=== PATIENT | male | born 1975 | race Caucasian/White ===

== ENCOUNTER 2017-07-03 16:58 | Emergency (ER) | payer SELFPAY | END 2017-07-03 18:29 | disposition home or self-care (01) | PROVIDERS: Emergency Provider Nurse Practitioner Family; Visit Provider Nurse Practitioner Family | DX: J10.1 Influenza due to other identified influenza virus with other respiratory manifestations (principal) | CPT/HCPCS: 87804; 87880; 99201 ==

== ENCOUNTER → 2018-02-21 14:10 | Outpatient (CLI) | payer OTHER, SELFPAY ==
[2018-02-21 16:50] LABS: Semen Viscosity Normal (Normal); Volume,Semen 2.4 ml (2.0-5.0)
[2018-02-21 16:51] LABS: Motility Quality Weak Progression (Mod-Rapid); Sperm Count 18 mil/mm3 (20-160); Sperm Motility 20 % (50-90)
[2018-02-21 16:53] LABS: Sperm Morphology Normal (Normal)
[2018-02-21 18:02] LABS: 3Hr Motility Quality Weak Progression (Mod-Rapid); 3Hr Sperm Motility 20 % (50-60)
== END ==
PROVIDERS: Visit Provider Obstetrics & Gynecology
DX: Z31.41 Encounter for fertility testing (principal)
CPT/HCPCS: 89320

== ENCOUNTER 2020-06-05 18:49 | Emergency (ER) | payer OTHER, SELFPAY ==
[2020-06-05 18:57] VITALS: BP 144/86; PULSE 81; RESP 19; TEMP 36.9; O2SAT 98; BMI 25.1
--- NOTE | 2020-06-05 18:57 | ED_ITS ---
[facility] Disposition Clinical Impression: Laceration of left index finger Qualifiers: Encounter type: initial encounter Damage to nail status: without damage Foreign body presence: without foreign body Qualified Code(s): S61.211A - Laceration wit hout foreign body of left index finger without damage to nail, initial encounter Disposition: Home, Self-Care Condition on Discharge: Good Instructions: DI for Laceration Repair -- Simple Referrals: Omar Redman MD [Primary Care Provider] - Time of Disposition: 19:33 Medical Decision Making - Emile Inquiry Pt receiving controlled substance: No Vital Signs: 06/05/20 18:57 Temperature 98.4 F Temperature Source Oral Pulse Rate [Radial] 81 Respiratory Rate 19 Blood Pressure [Right Arm] 144/86 H Blood Pressure Mean [Right Arm] 105 Blood Pressure Source [Right Arm] Automatic Cuff Blood Pressure Position [Right Arm] Sitting 02 Sat by Pulse Oximetry 98 Oxygen Delivery Method Room Air [facility] HPI - General Stated complaint: ao 06/05 @1700 LAC L iNDEX FINGER Time Seen by Provider: 06/05/20 18:57 - History of Present Illness Provider Complaint: Laceration left index finger cutting wood. Happened about 2 hours [employer]. Onset (ago): hour(s) (2) Location: left, upper extremity Relieving factors: none Exacerbating factors: none Associated symptoms: denies other symptoms Treatments prior to arrival: none - Related Data Previous Rx's Medication Instructions Recorded cephALEXin [Keflex 500mg Cap] 500 mg PO Q6H 10 Days #40 cap 08/09/19 Allergies Allergy/AdvReac Type Severity Reaction Status Date / Time No Known Allergies Allergy Verified 08/09/19 15:24 [facility] History - Hepatitis A Screen Attestation statement:: This patient has been screened for Hepatitis A risk factors. I have reviewed the patient's past medical history: Yes - Social History Alcohol Intake: never Occupational Status: employed ROS Obtained: Yes All systems reviewed & no additional complaints - Musculoskeletal Musculoskeletal: Reports as per HPI Physical Exam - General General appearance: alert, in no apparent distress - Head Head exam: atraumatic, normocephalic - Eye Eye exam: Present: PERRL - Respiratory Respiratory exam: Present: normal lung sounds bilaterally - Cardiovascular Cardiovascular exam: Present: regular rate, normal rhythm - Expanded Upper Extremity Exam Left Hand exam: Present: laceration (semicircular laceration left index finger) - Neurological Exam Neurological exam: Present: alert, oriented X3 - Psychiatric Psychiatric exam: Present: normal affect, normal mood - Skin Skin exam: Present: warm, dry, intact Procedures - Laceration Laceration 1 Site: finger Side (If applicable): left Size (cm): 1 Description: flap Depth: simple, single layer Local Anesthetic: lidocaine 1% Amount of anesthesia used (mL): 1.5 Pre-repair: wound explored, irrigated extensively Skin layer closed with: nylon Size (cm): 4-0 Number of sutures: 5 Technique: simple, interrupted
[2020-06-05 19:45] VITALS: BP 144/86; PULSE 81; RESP 19; TEMP 36.9; O2SAT 98
== END 2020-06-05 19:46 | disposition home or self-care (01) ==
PROVIDERS: Emergency Provider Physician Assistant; PCP Family Medicine
DX: S61.211A Laceration without foreign body of left index finger without damage to nail, initial encounter (principal); W27.0XXA Contact with workbench tool, initial encounter; Y92.017 Garden or yard in single-family (private) house as the place of occurrence of the external cause
CPT/HCPCS: 12001; 99201

== ENCOUNTER 2020-07-09 22:58 | Emergency (ER) | payer BC, SELFPAY ==
[2020-07-09 22:59] VITALS: BP 118/74; PULSE 85; RESP 18; TEMP 36.8; O2SAT 100; BMI 25.1
--- NOTE | 2020-07-09 23:08 | XR_ITS ---
PROCEDURE: XR ANKLE LT MIN 3V CLINICAL INDICATION: fall Twisting injury with pain COMPARISON: CR XR ANKLE LT MIN 3V from 08/09/2019 CR XR FOOT LT MIN 3V from 07/09/2020 FINDINGS: There is a comminuted fracture involving the distal shaft of the fibula with minimal dorsal displacement of the distal fracture fragment. Longitudinal fracture involves posterior aspect of the distal tibia with 2 mm dorsal displacement of the distal fracture fragment. The ankle mortise does appear widened. The there is a questionable small avulsion fracture along the lateral edge of the medial malleolus. This is questionable. No acute fracture of the foot. Mild metatarsus varus. There is a small calcaneal spur. Mild degenerative changes are present in the midfoot. IMPRESSION: Comminuted distal fibular shaft fracture with fracture the posterior distal tibia and widening of the ankle mortise with possible avulsion fracture along the lateral aspect of the medial malleolus. The Dictated by: Giovanni Mayer MD 07/10/2020 10:37 Giovanni Mayer MD in [place] 07/10/2020 10:37
--- NOTE | 2020-07-09 23:08 | XR_ITS ---
PROCEDURE: XR TIBIA FIBULA LT 2V CLINICAL INDICATION: fall Posttraumatic pain, twisting injury with pain COMPARISON: CR XR KNEE LT 3V from 08/09/2019 CR XR ANKLE LT MIN 3V from 07/09/2020 FINDINGS: Comminuted minimally displaced fracture involves the distal shaft of the fibula. There is a longitudinal minimally displaced fracture involving the distal and posterior aspect of the tibia. At the distal tip of the fibula there is a separate bony density well-circumscribed felt to be due to an old fracture or ununited ossification center. Neck or mortise is slightly widened. IMPRESSION: Distal tib fib fracture as described above. Dictated by: Giovanni Mayer MD 07/10/2020 10:33 Giovanni Mayer MD in [place] 07/10/2020 10:33
--- NOTE | 2020-07-09 23:31 | HMH.EDGENADL ---
ED Disposition Clinical Impression: Fracture of malleolus, left ankle, closed Qualifiers: Encounter type: initial encounter Qualified Code(s): S82.892A - Other fracture of left lower leg, initial encounter for closed fracture Closed left fibular fracture Qualifiers: Encounter type: initial encounter Fibula location: shaft Fracture alignment: displaced Disposition: Home, Self-Care Condition on Discharge: Good Instructions: Ankle Fracture Additional Instructions: You were seen on an emergency basis. It is very important that you follow up with your primary care provider and/or specialist as we discussed within 2 days. All labs and imaging were obtained and interpreted here to rule out life threatening emergencies, but your final results should be reviewed by your primary doctor at your follow up appointment. Please return to the emergency department if any of your symptoms worsen, or if they do not improve as we discussed. Prescriptions: Hydrocodone/Acetaminophen [Rousseau 5-325 Tablet] 1 each PO Q4-6H PRN #12 tab PRN Reason: Moderate Pain Prescription Printed Referrals: Omar Redman MD [Primary Care Provider] - Kathia Christie MD [Physician] - - Critical Care Critical Care Time: No Attestation: On 07/09/20, the high probability of a clinically significant, sudden or life threatening deterioration of the following system(s) required my full and direct attention, intervention and personal management. The time I documented below is in addition to time spent performing reported procedures but includes the following listed in this critical care notation. Medical Decision Making - Medical Records Medical records reviewed: Yes: I reviewed the patient's medical records. - Emile Inquiry Pt receiving controlled substance: Yes Emile was queried for this patient: No (Acute fracture necessitating opiates) Risks and benefits of using a controlled substance: were discussed with pt by me Vital Signs: 07/09/20 22:59 Temperature 98.2 F Temperature Source Oral Pulse Rate [Left Radial] 85 Respiratory Rate 18 Blood Pressure [Right Arm] 118/74 Blood Pressure Mean [Right Arm] 88 Blood Pressure Source [Right Arm] Automatic Cuff Blood Pressure Position [Right Arm] Sitting 02 Sat by Pulse Oximetry 100 Oxygen Delivery Method Room Air Orders (Tests/Meds): ED MEDICATIONS Discontinued Medications Generic Name Dose Route Start Last Admin Trade Name Freq PRN Reason Stop Dose Admin Hydrocodone Bitart/Acetaminophen 1 tab 07/09/20 23:09 07/09/20 23:11 Apap/Hydrocodone 325mg/7.5mg Tab PO 07/09/20 23:10 1 tab ONCE ONE Administration ORDERS Category Date Time Status XR ankle LT min 3V Stat Exams 07/09/20 23:08 Taken XR foot LT min 3V Stat Exams 07/09/20 23:08 Taken XR tibia fibula LT 2V Stat Exams 07/09/20 23:08 Taken Medical Decision Narrative: 45-year-old male presenting with left ankle injury. X-rays obtained tib/fib, ankle and foot demonstrating a trimalleolar fracture. I spoke with orthopedics who advised that I placed in a short leg splint with stirrup follow-up for operative intervention this week. Pain treated with Rousseau here and will prescribe the same. Crutches dispensed. General Adult HPI - General Chief complaint: Extremity Injury, Lower Stated complaint: Pain Lft Ankle;fall Time Seen by Provider: 07/09/20 23:31 Mode of Arrival: Wheelchair Limitations: No Limitations Description of Symptoms (Recalled from ER Triage Doc. by RN): Pt states he tripped and fell chasing his cat and injured his left ankle. No gross deformity on evaluation. Pedal pulses good w/ positive cap refill. - History of Present Illness HPI narrative: Is a 45-year-old male who presents with localized left ankle pain after a ground-level mechanical fall. Patient states he was running and heard a pop in his ankle and fell. No head strike or loss of consciousness. No other injuries. No prehospital medicatio
--- NOTE | 2020-07-09 23:46 | PC.NURSE ---
speaking to ortho
[2020-07-10 00:21] VITALS: BP 113/70; PULSE 81; RESP 16; TEMP 36.7; O2SAT 100
== END 2020-07-10 00:25 | disposition home or self-care (01) ==
PROVIDERS: Emergency Provider Physician Assistant; PCP Family Medicine
DX: S82.852A Displaced trimalleolar fracture of left lower leg, initial encounter for closed fracture (principal); S82.832A Other fracture of upper and lower end of left fibula, initial encounter for closed fracture; W01.0XXA Fall on same level from slipping, tripping and stumbling without subsequent striking against object, initial encounter; Y92.019 Unspecified place in single-family (private) house as the place of occurrence of the external cause
CPT/HCPCS: 29515; 73590; 73610; 73630; 99283

== ENCOUNTER → 2020-07-11 16:34 | Outpatient (CLI) | payer BC, SELFPAY ==
--- NOTE | 2020-07-11 | ECG_ITS ---
APPROVED REPORT Exam: Resting ECG HR:83 bpm ECG Measurements Heart Rate 83 AXES [place] 134 P 59 QRSd 88 QRS -7 QT 374 T 35 QTc 439 Conclusion Normal sinus rhythm Minimal voltage criteria for LVH, may be normal variant Borderline ECG Electronically signed by : Toi Beaulieu, 07/12/2020 06:59:53
[2020-07-11 17:03] LABS: Basophils # 0.1 K/mm3 (0-0.2); Basophils % 0.6 % (0.1-2.0); Eosinophils % 0.5 % (0.1-12.0); Hematocrit 46.5 % (42.0-52.0); Hemoglobin 16.3 g/dL (14.1-18.0); Lymphocytes # 1.4 K/mm3 (0.7-4.5); Lymphocytes % 18.8 % (10-50); Mean Corpuscular Hemoglobin 30.8 pg (27.0-31.2); Mean Corpuscular Volume 88.1 fl (80-94); Monocytes # 0.5 K/mm3 (0.1-1.0); Monocytes % 6.4 % (1.7-9.3); Neutrophils # 5.3 K/mm3 (1.8-7.8); Neutrophils % 73.7 % (37.0-80.0); Platelet Count 219 K/mm3 (142-424); Red Blood Count 5.28 M/mm3 (4.60-6.20); Red Cell Distribution Width 13.2 % (11.5-17.5); White Blood Count 7.2 K/mm3 (4.8-10.8)
[2020-07-11 17:34] LABS: Alanine Aminotransferase 33 U/L (12-78); Albumin Level 4.5 g/dl (3.5-5.0); Albumin/Globulin Ratio 1.6 (1.1-1.8); Alkaline Phosphatase 66 U/L (38-126); Anion Gap 13.2 mEq/L (5-15); Aspartate Amino Transferase 35 U/L (17-59); Bilirubin,Total 0.9 mg/dl (0.2-1.3); Blood Urea Nitrogen 12 mg/dl (9-20); Calcium 9.6 mg/dl (8.4-10.2); Carbon Dioxide 30 mmol/L (22.0-30.0); Chloride 100 mmol/L (98-107); Estimated Glomerular Filt Rate 104 ml/min (>60); GFR (African American) 125 ML/MIN (>60); Globulin 2.8 g/dL (1.3-3.2); Glucose 103 mg/dl (74-100); Potassium 4.2 mmoL/L (3.5-5.1); Sodium 139 mmol/L (136-145); Total Protein,Serum 7.3 g/dl (6.3-8.2)
[2020-07-11 17:54] LABS: 25-OH Vitamin D, Total 81.2 ng/mL (30-100)
[2020-07-11 18:00] LABS: Coronavirus 19 IgG Antibody Negative (Negative); Coronavirus 19 IgM Antibody Negative (Negative)
== END ==
PROVIDERS: Visit Provider Podiatrist
DX: Z01.812 Encounter for preprocedural laboratory examination (principal); Z11.52 Encounter for screening for COVID-19; S82.852A Displaced trimalleolar fracture of left lower leg, initial encounter for closed fracture
CPT/HCPCS: 36415; 80053; 82306; 85025; 86328; 93005

== ENCOUNTER → 2020-07-12 09:46 | Outpatient (CLI) | payer BC, SELFPAY ==
--- NOTE | 2020-07-12 10:03 | CT_ITS ---
PROCEDURE: CT LOWER LEG LT WO CON CLINICAL HISTORY: Left ankle/fx eval surgical planning Injury with pain, fracture, surgical evaluation COMPARISON: CR XR ANKLE LT MIN 3V from 08/09/2019 CR XR ANKLE LT MIN 3V from 07/09/2020 TECHNIQUE: Axial images obtained with sagittal and coronal reformats. All CT scans at the facility use one or more dose reduction, viz: automated exposure control, ma/kV adjustment per patient size (including targeted exams where dose is matched to indication, i.e. head), or iterative reconstruction technique. FINDINGS: There is a nondisplaced comminuted fracture involving the distal shaft of the fibula. The fracture is epicentered approximately 12 cm proximal to the tip of the lateral malleolus. An avulsion fracture involves the tip of the lateral malleolus which appears chronic. There is also an old avulsion fracture or ununited ossification center at the tip of the medial malleolus. Comminuted fracture is present involving the posterior distal tibia with intra-articular involvement. This fracture is longitudinal in nature with minimal dorsal displacement of 3 mm. There is widening of the ankle mortise with inversion of the talus. There is generalized soft tissue swelling at the ankle. The ankle ligaments and tendons are not well delineated by CT. IMPRESSION: Acute nondisplaced fracture of the distal shaft of the fibula. Acute longitudinal fracture involves the dorsal aspect of the distal tibia extending into the articular surface with minimal dorsal displacement of the dorsal fracture fragment. Widening of the ankle mortise with inversion of the talus Old avulsion fractures at the tip of the medial malleolus and lateral malleolus. Dictated by: Giovanni Mayer MD 07/13/2020 09:20 Giovanni Mayer MD in [place] 07/13/2020 09:20
== END ==
PROVIDERS: PCP Family Medicine; Visit Provider Podiatrist
DX: S82.852A Displaced trimalleolar fracture of left lower leg, initial encounter for closed fracture (principal); S99.912A Unspecified injury of left ankle, initial encounter
CPT/HCPCS: 73700

== ENCOUNTER 2020-07-13 12:14 | Day surgery (SDC) | payer BC, SELFPAY ==
[2020-07-12 12:35] VITALS: BMI 25.7
[2020-07-13] VITALS (10 sets, daily range): BP systolic 124–141; BP diastolic 69–84; PULSE 76–97; RESP 15–18; TEMP 36.4–43; O2SAT 93–100
--- NOTE | 2020-07-13 14:08 | HMH.ANESCL ---
[facility] Anesthesia Checklist - Patient Identification Patient Identification: Arm Band - Structural Data Admitted From: Home Planned Operative Procedure/s: ORIF Left Ankle Consent for Planned Operative Procedure(s) Verified: Yes Verified Documents: Surgical Consent, History and Physical - NPO Status Verified Time NPO: 00:00 - Additional verifications Anesthesia Reactions: No Hx Blood Transfusions: No Blood Transfusion Reaction: No - Airway Assessment C-Spine Mobility Assessed: Yes (mp2) TMJ Mobility Assessed: Yes Dentition: Good Dentition - Neurological Assessment Level of Consciousness: Awake, Alert - Anesthesia Plan Anesthesia Risk discussed: Yes Anesthesia Plan: Verified ASA Class: II Anesthesia Type: General w/block (Risks/benefits of popliteal nerve block explained. Pt verbalized understanding. Pt does report tingling/numbness in foot. Dr. Sherwood notified and still requests block. Pt verbalizes understanding of risk of continued numbness/tingling after procedure not related to nerve block.) [facility] History I have reviewed the patient's past medical history: Yes Medical History: Denies:: Cancer, Diabetes Mellitus Type 1, Diabetes Mellitus Type 2, Internal Pacemaker, MRSA, Seizures *Have you ever received a pneumonia vaccine?: No *Have you received a flu vaccine this season?: No Other Medical History: Denies: Blood Transfusion Reaction Anesthesia experience/problems:: nac Other Surgeries: Yes: Other (wisdom teeth). No: Pacemaker Amputation: No Fractures: Yes - *Social History Last grade of school completed: GED Smoking Status: Never smoker Alcohol Intake: current Alcohol Intake Frequency:: a few times a month Substance Use Type: denies use *Occupational Status:: employed Housing: house Household Members: spouse *Travel in the last 8 weeks: None Family Hx:: No significant family history
--- NOTE | 2020-07-13 15:12 | HMH.OPNOTE ---
Date of procedure: 07/13/20 Pre-op Diagnosis:: 1. Left ankle closed trimalleolar equivalent fracture (distal fibula, posterior malleolar fractures) 2. Left deltoid ligament partial tear 3. Left acute ankle injury, pain 4. Left traumatic ecchymosis, edema Post-op Diagnosis:: Same Procedure performed:: 1. Left ankle ORIF (distal fibula, posterior malleolus) 2. Left application of graft 3. Left application of posterior splint Surgeon:: Gerri Sherwood DPM REWORKER:: Toi Hewitt Anesthesia: GETA, regional (Left popliteal, saph nerve block) Estimated blood loss (mL): 20 Clinical Note:: Patient is a 45M who broke the left ankle running after his cat on 07/09/20. Left Trimalleolar Ankle Fracture Pre-op: X-rays 3 views of left ankle, foot and tib-fib evaluated. Reports noted. FINDINGS: Comminuted minimally displaced fracture involves the distal shaft of the fibula. There is a longitudinal minimally displaced fracture involving the distal and posterior aspect of the tibia. At the distal tip of the fibula there is a separate bony density well circumscribed felt to be due to an old fracture or ununited ossification center. Neck or mortise is slightly widened. IMPRESSION: Distal tib fib fracture as described above. FINDINGS: There is a comminuted fracture involving the distal shaft of the fibula with minimal dorsal displacement of the distal fracture fragment. Longitudinal fracture involves posterior aspect of the distal tibia with 2 mm dorsal displacement of the distal fracture fragment. The ankle mortise does appear widened. The there is a questionable small avulsion fracture along the lateral edge of the medial malleolus. This is questionable. No acute fracture of the foot. Mild metatarsus varus. There is a small calcaneal spur. Mild degenerative changes are present in the midfoot. IMPRESSION: Comminuted distal fibular shaft fracture with fracture the posterior distal tibia and widening of the ankle mortise with possible avulsion fracture along the lateral aspect of the medial malleolus. X-rays reviewed and discussed with the patient. Conservative treatment discussed but not recommended. DOI: 07/09/20. Discussed CT scan for surgery planning. We discussed surgery. All risks and benefits were discussed including but not limited to: damage to blood vessels and nerves, bleeding, infection, wound complications, delayed, mal or non-union of bone, post-traumatic arthritis, need for further surgery, need for removal of implant, prolonged swelling of the extremity, prolonged pain, CRPS/RSD, DVT, and anesthetic complications including. No guarantees were given. All questions fully answered. The patient verbalized understanding and agreed to proceed with surgery. Consent was obtained. Discussed DVT ppx, low risk-no meds given. Okay to take aspirin post op. Recommend vitamin D. Necessary labs and pre-op testing ordered: CBC, CMP, vit D, EKG, CXR, covid. Medical clearance per PCP-Dr. Redman. Pt was given an e-Rx for Sandoval 7.5/325 #30, Zofran, Motrin. Patient was placed into splint. Patient has crutches. Operative findings:: There was a comminuted long spiral oblique distal fibular fracture. The most distal and proximal aspects of the fractures were both comminuted. Posterior mall fracture noted with some comminution and gapping. Ankle joint had intra-articular posterior mall involvement with some cartilage damage posteriorly. Syndesmosis intact. The ankle was stable post reduction with no medial clear space widening, negative Hook test, anterior ankle drawer and negative talar tilt and external rotation tests. Operative note:: On this date and time patient was deemed an appropriate surgical candidate. Pre-op regional popliteal and saphenous nerve block performed by anesthesia. With informed consent signed, the patient was taken to the operating theater. General anesthesia induced. Tourniquet applied to the left thigh @250mmHg. Patient positioned prone. The left lower extremity was prepped and
--- NOTE | 2020-07-13 17:00 | XR_ITS ---
PROCEDURE: XR ANKLE LT MIN 3V CLINICAL INDICATION: Post op ORIF Follow-up surgery COMPARISON: CR XR ANKLE LT MIN 3V from 08/09/2019 CR XR ANKLE LT MIN 3V from 07/09/2020 FINDINGS: Status post ORIF with a lateral fibular bone plate and a posterior tibial bone plate with good alignment of the fracture fragments. There is a cast in place. IMPRESSION: Good alignment status post Dictated by: Giovanni Mayer MD 07/13/2020 20:12 Giovanni Mayer MD in [place] 07/13/2020 20:12
--- NOTE | 2020-07-13 17:45 | XR_ITS ---
PROCEDURE: XR ANKLE LT 2V CLINICAL INDICATION: C-ARM USED FOR ORIF LEFT ANKLE. COMPARISON: No exams were available for comparison FINDINGS: Fluoroscopy time: 1 minutes and 14 seconds. Multiple images submitted with the C-arm during placement of a distal fibular bone plate and posterior distal tibial bone plate which appears to be in good alignment. IMPRESSION: Status post ORIF distal tib fib as described above Dictated by: Giovanni Mayer MD 07/14/2020 10:02 Giovanni Mayer MD in [place] 07/14/2020 10:02
--- NOTE | 2020-07-13 18:32 | P.PN_ITS ---
[facility] Anesthesia Record Part I Intake, IV Amount: 800 Estimated blood loss (mL): 10 Urine output (mL): 0 Blood Products used (#): none Blood Pressure: 141/84 SaO2: 95 Pulse Rate: 97 Respiratory Rate: 18 Temperature: 97.6 F Patient is:: Drowsy, Stable Stable to PACU at:: 18:28
--- NOTE | 2020-07-14 02:51 | HMH.ANESII ---
[facility] Anesthesia Record Part II Discharge Time: 18:58 Destination: Surgical Day Care (OP Surgery) PACU nurse assessment reviewed?: Yes Patient Condition:: Good Anesthesia Complications:: None Swallowing reflex intact?: Yes Cyanosis?: No Blood Pressure: 134/70 Pulse Rate: 94 Temperature: 97.5 F Mental Status: Alert & Oriented Pain level:: 0 Nausea and/or vomitting:: None Intake, IV Amount: 45
[2020-07-14 02:52] VITALS: BP 134/70; PULSE 94; TEMP 36.4
== END 2020-07-13 19:35 | disposition home or self-care (01) ==
PROVIDERS: PCP Family Medicine; Visit Provider Podiatrist
PROC: (CPT 27814; principal; 2020-07-13 13:45)
DX: S82.852A Displaced trimalleolar fracture of left lower leg, initial encounter for closed fracture (principal); W01.0XXA Fall on same level from slipping, tripping and stumbling without subsequent striking against object, initial encounter; Y93.02 Activity, running
CPT/HCPCS: 27814; 73600; 73610; 76000; 96374; C1713; C1762; C1776; J2405; Q4211

== ENCOUNTER → 2020-08-27 16:41 | Outpatient (CLI) | payer BC, SELFPAY ==
--- NOTE | 2020-08-27 16:51 | XR_ITS ---
PROCEDURE: XR ANKLE WT BEARING LT MIN 3V CLINICAL INDICATION: post-op COMPARISON: CR XR ANKLE LT MIN 3V from 07/09/2020 CR XR TIBIA FIBULA LT 2V from 07/09/2020 XA XR ANKLE LT 2V from 07/13/2020 CR XR ANKLE LT MIN 3V from 07/13/2020 FINDINGS: Removed. The long distal fibular bone plate is again noted transfixed by multiple threaded screws rib reducing the distal fibular fracture in anatomic alignment. The shorter posterior metallic bone plate is seen posterior border of the distal tibia. The previously widened ankle mortise has been reduced. There is a faint avulsion chip fracture tip of medial malleolus. IMPRESSION: Satisfactory ORIF posterior malleolar and distal fibular fractures Dictated by: Dr. Donny Smiley MD 08/28/2020 08:24 Dr. Donny Smiley MD in [place] 08/28/2020 08:24
== END ==
PROVIDERS: PCP Family Medicine; Visit Provider Podiatrist
DX: Z98.890 Other specified postprocedural states (principal); S82.852D Displaced trimalleolar fracture of left lower leg, subsequent encounter for closed fracture with routine healing; R60.9 Edema, unspecified
CPT/HCPCS: 73610

== ENCOUNTER → 2020-09-20 14:24 | Outpatient (CLI) | payer BC, SELFPAY ==
--- NOTE | 2020-09-20 14:28 | XR_ITS ---
PROCEDURE: XR ANKLE WT BEARING LT MIN 3V CLINICAL INDICATION: post-op Follow-up surgery COMPARISON: CR XR ANKLE LT MIN 3V from 08/09/2019 CR XR ANKLE LT MIN 3V from 07/09/2020 CR XR ANKLE LT MIN 3V from 07/13/2020 CR XR ANKLE WT BEARING LT MIN 3V from 08/27/2020 FINDINGS: Lateral fibular bone plate and posterior tibial bone plate both remain in place with good alignment of the fracture fragments. There is some ossification noted in the syndesmotic region of the distal tib fib. IMPRESSION: Good alignment status post ORIF distal tib fib Dictated by: Giovanni Mayer MD 09/20/2020 14:54 Giovanni Mayer MD in [place] 09/20/2020 14:54
== END ==
PROVIDERS: PCP Family Medicine; Visit Provider Podiatrist
DX: Z98.890 Other specified postprocedural states (principal); R60.9 Edema, unspecified; S82.852D Displaced trimalleolar fracture of left lower leg, subsequent encounter for closed fracture with routine healing; S99.912D Unspecified injury of left ankle, subsequent encounter
CPT/HCPCS: 73610

== ENCOUNTER → 2020-11-03 07:58 | Outpatient (CLI) | payer BC, SELFPAY ==
--- NOTE | 2020-11-03 08:02 | XR_ITS ---
PROCEDURE: XR ANKLE WT BEARING LT MIN 3V CLINICAL INDICATION: post-op COMPARISON: CR XR ANKLE LT MIN 3V from 07/09/2020 CR XR ANKLE LT MIN 3V from 07/13/2020 CR XR ANKLE WT BEARING LT MIN 3V from 08/27/2020 CR XR ANKLE WT BEARING LT MIN 3V from 09/20/2020 FINDINGS: Postoperative changes once again noted with lateral bone plate at the distal shaft of the fibula and posterior bone plate at the distal tibia. Ossification noted within the syndesmosis of the tibiofibular region slightly increased. There is good alignment with no acute finding. IMPRESSION: Postsurgical changes as described above. Good alignment with no acute finding Dictated by: Giovanni Mayer MD 11/03/2020 08:32 Giovanni Mayer MD in [place] 11/03/2020 08:32
== END ==
PROVIDERS: PCP Family Medicine; Visit Provider Podiatrist
DX: Z98.890 Other specified postprocedural states (principal)
CPT/HCPCS: 73610

== ENCOUNTER → 2020-11-08 14:52 | Outpatient (CLI) | payer BC, SELFPAY ==
--- NOTE | 2020-11-08 14:52 | MR_ITS ---
PROCEDURE INFORMATION: Exam: MR Left Lower Extremity Joint Without and With Contrast; Ankle Exam date and time: 11/08/2020 2:52 PM Age: 45 years old Clinical indication: Pain; Ankle; Left; Prior surgery; Surgery date: 6+ months; Additional info: Post op ankle pain TECHNIQUE: Imaging protocol: MR of the Left lower extremity without and with contrast. Exam focused on the ankle. Contrast material: PROHANCE; Contrast volume: 17 ml; Contrast route: IV; COMPARISON: 1. SD MR ANKLE LT WO/W CON 11/08/2020 2:45 PM (paperwork) 2. CR XR ANKLE WT BEARING LT MIN 3V 11/03/2020 8:05 AM 3. CR XR ANKLE WT BEARING LT MIN 3V 09/20/2020 2:32 PM FINDINGS: Limitations: Hardware produces susceptibility artifact that obscures the adjacent bone and soft tissues. Bones and cartilage: Orthopedic hardware traverses fractures of the distal fibula and posterior malleolus. Metal artifact limits assessment of healing. Within the limits of visualization, the posterior malleolus fracture appears incompletely healed (series 5/images 12-14), which would be better assessed with CT if this would alter clinical management. The fibular fracture site is predominantly obscured by artifact from the supporting hardware. There are probable small bone fragments adjacent to the tips of the medial and lateral malleoli that suggest ununited fracture fragments. Joint spaces: A mild effusion involves the first metatarsophalangeal joint. LIGAMENTS: Distal tibiofibular syndesmosis: The tibiofibular ligaments and syndesmotic ligament are obscured by artifact. Anterior talofibular ligament: The anterior talofibular ligament has intermediate signal, consistent with prior low grade partial-thickness tear. Posterior talofibular ligament: The posterior talofibular ligament is thickened, consistent with prior low grade injury. Calcaneofibular ligament: The calcaneofibular ligament has intermediate signal intensity, consistent with prior low grade injury. Deltoid ligament complex: Increased T2 signal within the deep deltoid ligament complex is consistent with sprain or low-grade partial-thickness tearing. The superficial component of the deltoid ligament is intact. TENDONS: Flexor tendons of foot: Unremarkable as visualized. Tibialis posterior tendon: Mild tenosynovitis involves the tibialis posterior tendon. Peroneal tendons: Unremarkable as visualized. Extensor tendons of foot: Unremarkable as visualized. Tibialis anterior tendon: Unremarkable. Achilles tendon: There is no tear or significant tendinosis involving the Achilles tendon. Tarsal canal (Sinus tarsi): The sinus tarsi has normal fat signal. Tarsal tunnel: Unremarkable. Muscles: Moderate edema involves the distal flexor hallucis longus muscle. Soft tissues: Mild soft tissue edema is present. Plantar fascia: There is no mass or significant fasciitis (fasciopathy) involving the plantar fascia. IMPRESSION: 1. Incompletely healed appearance of the posterior malleolus fracture with inability to assess healing of the fibular fracture. Consider CT scan if more definitive assessment would alter clinical management. 2. Probable small ununited fracture fragments adjacent to the tips of the medial and lateral malleoli. 3. Low-grade injuries of the anterior talofibular, posterior talofibular, and calcaneofibular ligaments. 4. Sprain of the deep deltoid ligament complex. 5. Mild tenosynovitis of the tibialis posterior tendon.
== END ==
PROVIDERS: PCP Family Medicine; Visit Provider Podiatrist
DX: S82.892A Other fracture of left lower leg, initial encounter for closed fracture (principal); Z98.890 Other specified postprocedural states
CPT/HCPCS: 73723; A9576

== ENCOUNTER 2020-11-25 14:00 | Outpatient (RCR) | payer BC, SELFPAY ==
--- NOTE | 2020-09-08 14:48 | HMH.PTOPEV ---
PT Outpatient Evaluation Rehab PT Outpatient Evaluation Start: 09/08/20 14:30 Freq: Status: Active Protocol: Document 09/08/20 14:30 RACHELCHERRY (Rec: 09/08/20 14:48 DANTE [id number]) Electronically Signed By Morro Arnold, PT 09/08/20 14:30 Outpatient Therapy Subjective History Subjective History Patient is a 45 year old male presenting to outpatient PT with reports of L post- surgical foot/ankle pain S/P L ORIF for tri-malleolar fracture. Initial injury occurred after a slip and fall while running after his cat at home on 07/12/20. Sx date 07/13/20 (8w 1d S/P). Patient present with L knee scooter and tall CAM walker. Patient reports that MD instructed to progress weight bearing status 10% per day. No other commorbidities to report. Chief Complaint Pain,Stiff,Swelling,Weakness Symptom Type Ache,Shooting Symptoms Relieved By Rest/Positioning,Ice,OTC Meds, Elevation Prior Functional Limitations None Current Functional Limitations Housework,Standing,Squatting, Recreation Activity,Walking, Stairs,Balance Symptom Description Constant but Variable Level of pain today (0-10) 2 Pain scale - at its best (0-10) 1 Pain scale - at its worst (0-10) 7 Ankle/Foot Eval Gait Observation General Gait Pattern Observation Antalgic Gait,Decrease Weight Bear (L) Palpation Tenderness left Ankle/Foot Palpation Findings Tenderness Ankle/Foot Palpation Overall Comment lateral surgical incision about distal fibula 3/4 ROM Ankle/Foot Dorsiflexion w/Knee Extended -19 Active Range Motion (degrees) Ankle/Foot Dorsiflexion w/Knee Extended -10 Passive Range (degrees) Ankle/Foot Plantar Flexion Active Range 48 of Motion (degrees) Ankle/Foot Plantar Flexion Passive Range 52 of Motion (degrees) Ankle/Foot Eversion Active Range of 5 Motion (degrees) Ankle/Foot Eversion Passive Range of 10 Motion (degrees) Ankle/Foot Inversion Active Range of 12 Motion (degrees) Ankle/Foot Inversion Passive Range of 19 Motion (degrees) Ankle/Foot ROM Limitations Soft Tissue Tightness Great Toe ROM Reason Not Measured Within Functional Limits Accessory Movements Ankle Accessory Movements ti
--- NOTE | 2020-10-05 17:08 | HMH.RHREAS ---
Rehab Reassessment Rehab OP Re-assessment Start: 10/05/20 16:55 Freq: Status: Active Protocol: Document 10/05/20 16:55 DANTE (Rec: 10/05/20 17:05 DANTE [id number]) Electronically Signed By Morro Arnodl, PT 10/05/20 16:55 Rehab Re-assessment Subjective Subjective Patient reports 50% improvement since start of care. Objective Objective Notes AROM: DF -4; PF WNL; EV19; INV 30 PROM: DF 0; EV 23; INV 33 MMT: DF 4+/5; PF 5/5; EV/INV 4 /5 Pain: 4/10 today; 8/10 at worst over past week Neuro: WNL Assessment Progress Assessment Progressing as Expected Assessment Notes Patient is progressing well with Rx. He has progress to limited ambulation without AD. AROM has progressed well as noted above. Main complaint has been pain about surgical incision and plantar surface of the foot. Pt has developed a possible fibroma or cyst, which has decreased since introduciton of IASTM. Patient continues to have functional limitations with any prolonged standing/ ambulatory activity. Patient goals met STG 2 Goals Not Met STG 1; LTG's Revised Goals NA Plan Plan Continue with current POC. Frequency of Therapy 2x/week Duration of therapy 4 weeks Time and Billing Re-Eval Time 15 Re-Eval Billing Units 1 PHYSICIAN CERTIFICATION: I certify the specified therapy services for Troy Garcia are required, authorized, and reviewed every 30 days.
--- NOTE | 2020-11-15 16:54 | HMH.RHREAS ---
Rehab Reassessment Rehab OP Re-assessment Start: 10/05/20 16:55 Freq: Status: Active Protocol: Document 11/15/20 16:40 DANTE (Rec: 11/15/20 16:53 DANTE [id number]) Electronically Signed By Morro Arnold, PT 11/15/20 16:40 Rehab Re-assessment Subjective Subjective Patient reports 80% improvement since start of care. Objective Objective Notes AROM L ankle: DF 3; PF 50; EV 22; INV WNL PROM L ankle: DF 5; PF WNL; EV WNL; INV WNL MMT: DF 4+/5; PF 4+/5; EV/INV 4/5 Pain: 2/10 today; 4/10 at worst Assessment Progress Assessment Progressing as Expected Assessment Notes Overall objective improvements as noted above. Most recent imaging indicates that patient still has a non-healing fracture of the posterior malleolus, tenosynovitis of post-tib and multiple ligamentous partial tears. Symptoms continue to contribute to functional limitations with all prolonged standing and ambulatory activities. Patient goals met STG's; LTG 1,2,4,5 Goals Not Met LTG 3, 6, 7,8 Revised Goals Patient will tolerate return to work related activities. Plan Plan Continue with current POC. Frequency of Therapy 2x/week Duration of therapy 4 weeks Time and Billing Re-Eval Time 15 Re-Eval Billing Units 1 PHYSICIAN CERTIFICATION: I certify the specified therapy services for Troy Garcia are required, authorized, and reviewed every 30 days.
== END 2020-11-25 14:05 | disposition home or self-care (01) ==
LOC: PT 14:00
PROVIDERS: PCP Family Medicine; Visit Provider Podiatrist
DX: S99.912A Unspecified injury of left ankle, initial encounter (principal); Z98.890 Other specified postprocedural states
CPT/HCPCS: 97010; 97014; 97016; 97035; 97110; 97140; 97163; 97164; G0283

== ENCOUNTER → 2021-02-28 14:42 | Outpatient (CLI) | payer BC, SELFPAY ==
--- NOTE | 2021-02-28 14:47 | XR_ITS ---
PROCEDURE: XR FOOT WT BEARING LT 3V CLINICAL INDICATION: postop COMPARISON: CR XR FOOT LT MIN 3V from 08/09/2019 CR XR FOOT LT MIN 3V from 07/09/2020 FINDINGS: No fracture or dislocation. No lytic or blastic change. There is normal mineralization. There are postsurgical changes with dorsal bone plate at the distal tibia. Fibular bone plate is also present. There is mild pes planus with minimal degenerative change at the talonavicular and navicular cuneiform joint Other findings:None. IMPRESSION: Pes planus with mild degenerative and postsurgical changes Dictated by: Giovanni Mayer MD 02/28/2021 15:29 Giovanni Mayer MD in [place] 02/28/2021 15:29
== END ==
PROVIDERS: PCP Family Medicine; Visit Provider Nurse Practitioner
DX: Z98.890 Other specified postprocedural states (principal)
CPT/HCPCS: 73630

== ENCOUNTER 2021-07-19 11:58 | Emergency (ER) | payer BC, SELFPAY ==
[2021-07-19 12:03] VITALS: BP 121/65; PULSE 92; RESP 16; TEMP 38.1; O2SAT 97; BMI 25.7
[2021-07-19 12:26] LABS: UTC Strep Screen (Rapid) Positive (Negative)
--- NOTE | 2021-07-19 12:31 | HMH.EDUTC ---
[facility] [place] Clinical Impression: Strep [place] Disposition: Home, Self-Care Condition on Discharge: Good Instructions: Strep Throat, DI for Strep Throat, DI for COVID-19 (Suspected or Confirmed ), Preventing the Spread of Coronavirus Discharge Instructions Additional Instructions: *Monitor Temp, Over the counter Motrin or Tylenol as directed/as needed Tylenol every 4 hours and Motrin every 6 hours (as long as your family doctor has told you that you can take it) for fever or pain. and straight to ER if unable to lower temp less than 101.0 after medication given *Warm salt water gargles may help to soothe the throat *Throat Lozenges *Warm fluids like tea with honey may help to soothe the throat *Sleep elevated *Humidifier/Vaporizer Follow up IMMEDIATELY for new or worsening symptoms or no Noticeable improvement over the next 48-72 hours. 911 for difficulty breathing or swallowing You were tested for today for COVID19 your test result should be back in the next 24-48 hours, you may check your results on the [facility] My Health Portal if you have trouble logging on you may call support to help you You was given a handout with instructions for Self Quarantine and Self isolation for while you wait on test results and what to do if they are positive If you are positive the Health Dept will be contacting you also Make sure to take your Vitamins Vit. C Vit D and Zinc if you can take them Prescriptions: Ondansetron [Zofran 4mg ODT] 4 mg PO TIDP PRN #12 tab PRN Reason: Nausea Transmission Status: Pending to [id number] Referrals: Toi Hare MD [Primary Care Provider] - As needed Forms: Work/School Release Time of Disposition: 12:32 Medical Decision Making - Emile Inquiry Pt receiving controlled substance: No Emile was queried for this patient: No Vital Signs: 07/19/21 12:03 Temperature 100.6 F H Temperature Source Oral Pulse Rate [Left] 92 H Respiratory Rate 16 Blood Pressure [Right Arm] 121/65 Blood Pressure Mean [Right Arm] 83 02 Sat by Pulse Oximetry 97 - Lab Data Lab results reviewed: Yes: I reviewed the patient's lab results. Lab Results 07/19/21 12:18: Strep Scn Rapid Clinic Positive A Orders (Tests/Meds): ED MEDICATIONS Discontinued Medications Generic Name Dose Route Start Last Admin Trade Name Akiko PRN Reason Stop Dose Admin Ondansetron HCl 4 mg 07/19/21 12:34 Ondansetron 4mg Odt SL 07/19/21 12:35 ONCE ONE Penicillin G Benzathine 1,200,000 unit 07/19/21 12:34 Penicillin G Benzathine 1,200,000 Units/2ml Syringe IM 07/19/21 12:35 ONCE ONE ORDERS Category Date Time Status Rapid PCR Covid and Flu A/B Stat Lab 07/19/21 12:18 [place] [facility] [place] - General Stated complaint: fever, covid symptoms/exposure Time Seen by Provider: 07/19/21 12:31 Mode of Arrival: Ambulatory Source of Information: Patient Limitations: No Limitations Description of Symptoms (Recalled from Triage Doc. by RN): pt c/o chills, myalgia, VACA and congestion since yesterday. HEENT Symptoms (Recalled from RN notes): Yes (congestion and VACA) Resp Symptoms (Recalled from RN notes): No Skin Symptoms (Recalled from RN notes): No MS Symptoms (Recalled from RN notes): No Functional Status (Recalled from RN notes): wnl - History of Present Illness Provider Complaint: Patient state that he started feeling bad yesterday States that he has been having body aches, chills, sore scratchy throat and fever and nausea States that he has continued to feel worse so today he came in to get checked several people at work have had COVID so he came in - Related Data Previous Rx's Medication Instructions Recorded cholecalciferol (vitamin D3) 1,250 1,250 mcg PO WEEKLY #20 cap 07/11/20 mcg (50,000 unit) capsule meloxicam 7.5 mg tablet 7.5 mg PO DAILY #30 tab 11/03/20 Ondansetron [Zofran 4mg ODT] 4 mg PO TIDP PRN #12 tab 07/19/21 Allergies Allergy/AdvReac Type Jeniffer
[2021-07-19 12:53] LABS: Influenza A, PCR Not Detected (NotDetected); Influenza B, PCR Not Detected (NotDetected)
[2021-07-19 13:06] VITALS: BP 121/65; PULSE 92; RESP 16; TEMP 38.1
[2021-07-19 13:36] LABS: Coronavirus 19, PCR Detected (NotDetected)
== END 2021-07-19 13:08 | disposition home or self-care (01) ==
PROVIDERS: Emergency Provider Nurse Practitioner; PCP Family Medicine
DX: J02.0 Streptococcal pharyngitis (principal)
CPT/HCPCS: 87880; 96372; 99202; C9803; G0463; J0561; U0003; U0005

== ENCOUNTER → 2021-10-02 13:21 | Outpatient (CLI) | payer BC, SELFPAY | PROVIDERS: Visit Provider Nurse Practitioner | DX: Z20.822 Contact with and (suspected) exposure to COVID-19 (principal) | CPT/HCPCS: C9803; U0003; U0005 ==

== ENCOUNTER 2024-04-03 16:59 | Emergency (ER) | payer BC, SELFPAY ==
[2024-04-03 17:05] VITALS: BP 123/72; PULSE 73; RESP 20; TEMP 36.5; O2SAT 97; BMI 26.4
--- NOTE | 2024-04-03 17:13 | XR_ITS ---
PROCEDURE INFORMATION: Exam: XR Left Ribs with PA Chest Exam date and time: 04/03/2024 5:09 PM Age: 49 years old Clinical indication: Pain; Other: Left side anterior TECHNIQUE: Imaging protocol: Radiologic exam of the left ribs with PA chest. Views: 3 views COMPARISON: No relevant prior studies available. FINDINGS: Lungs: Unremarkable. No consolidation. Pleural spaces: Unremarkable. No pleural effusion. No pneumothorax. Heart/Mediastinum: Unremarkable. No cardiomegaly. Bones/joints: Unremarkable. No acute fracture identified. IMPRESSION: No acute findings.
--- NOTE | 2024-04-03 17:14 | ED_ITS ---
Discharge Plan Disposition Patient Disposition: Home, Self-Care Condition: Good Prescriptions Prescriptions: New lidocaine 4 % adhesive patch,medicated 1 patch topical DAILY PRN (Reason: pain) Qty: 10 0RF Rx Instructions: apply patch leave on from 12 hours and leave off for 12 hours methylprednisolone [Medrol (Cuaet)] 4 mg tablets,dose pack See Rx Instructions .Route .COMPLEX 6 Days Qty: 21 0RF Rx Instructions: taper pack; Referrals Follow up/Referrals: Provider,Referral, MD [Primary Care Provider] - See instructions Activity Restrictions/Add. Instructions Additional Instructions/Restrictions: Start oral steriods tomorrow Use Lidocaine patch as prescribed place on area for 12 hours then remove for 12 hours Follow up with your Family doctor if no improvement or any worsening of symptoms Return if needed Straight to ER if any life threatening symptoms Clinical Impressions Clinical Impression: Pain in rib Instructions Patient Instructions: Methylprednisolone, Lidocaine Transdermal Patch, DI for Muscle Strain Print Language Print Language: Urdu Discharge ED Provider: Concepción Bo [facility] [place] HPI General Stated complaint: SOA, cough Mode of Arrival: Ambulatory Source of Information: Patient Limitations: No Limitations Time Seen by Provider: 04/03/24 17:14 Description of Symptoms (Recalled from Triage Doc. by RN): PATIENT C/O PAIN TO LEFT RIB AREA WITH SOA X 2-3 WEEKS, NO KNOWN INJURY HEENT Symptoms (Recalled from RN notes): No Resp Symptoms (Recalled from RN notes): Yes Skin Symptoms (Recalled from RN notes): No MS Symptoms (Recalled from RN notes): Yes Functional Status (Recalled from RN notes): WNL History of Present Illness Provider Complaint: Patient states that he has been having pain in his left rib area that at times is sharp when he takes a deep breath and at times will take his breath States he hasnt fallen or anything but did do alot of heavy lifting at work and not sure if he may have pulled something, States pain is worse at times with deep breath and movement so today it was bothering him so he came in to get it checked worried he may have a cracked rib or something Related Data Previous Rx's ?Medication ?Instructions ?Recorded lidocaine 4 % topical patch 1 patch topical DAILY PRN pain #10 04/03/24 ea methylprednisolone 4 mg tablets in See Rx Instructions .Route 04/03/24 a dose pack (Medrol (Cuate)) .COMPLEX 6 days #21 tabs Allergies Allergy/AdvReac Type Severity Reaction Status Date / Time No Known Allergies Allergy Verified 02/28/21 14:11 Worker's Comp Is this a Worker's Comp case?: No [facility] Disclaimer: The information contained in this section may have been updated after the patient was seen, as this information can be updated by other users. Medical History (Updated 04/03/24 @ 18:13 by Concepción Bo APRN) No significant past medical history Social History Smoking Status: Never smoker second hand exposure: No alcohol intake: current alcohol intake frequency: holidays/special occasions only substance use type: denies use current occupational status: employed Travel in the last 8 weeks: None household members: spouse housing: house current occupation: [employer] caffeine: Yes ROS Obtained: Yes All systems reviewed & no additional complaints except as documented and Yes Systems reviewed as appropriate & no additional complaints except as documented Constitutional Constitutional: Reports system reviewed and no additional complaints, except as documented and Reports as per HPI Eyes Eyes: Reports system reviewed and no additional complaints, except as documented and Reports as per HPI ENT Ears, Nose, Mouth, and Throat: Reports system reviewed and no additional complaints, except as documented and Reports as per HPI Cardiovascular Cardiovascular: Reports system reviewed and no additional complaints, except as documented, Reports as per HPI, Denies chest pain and Reports other (pain in left ribs worse with movement and deep breath) Respiratory Respiratory: Reports system reviewed and no additional complaints, except as documented, Reports as per HPI, Reports pain on inspiration and Reports pain with cough Gastrointestinal Gastrointestingal: Reports system reviewed and no additional complaints, except as documented and as per HPI Physical Exam General General appearance: alert and in no apparent distress Chest Chest inspection: Present normal inspection, symmetric chest wall rise and tenderness Expanded Chest Exam Male Torso: 2 1. reports tenderness with palpation, no bruising no swelling noted Respiratory Respiratory exam: Present normal lung sounds bilaterally; Absent respiratory distress or wheezes Cardiovascular Cardiovascular exam: Present regular rate, normal rhythm and normal heart sounds Abdominal Exam Abdominal exam: Present soft and normal bowel sounds; Absent distention or tenderness Neurological Exam Neurological exam: Present alert, oriented X3 and normal gait Medical Decision Making Medical Records Screening: Per USPSTF and CDC recommendations, given the prevalence of disease in our region, it is our hospital?s policy to screen for HIV and viral Hepatitis for all patients aged 18 and over and those with ongoing risk factors. Emile Inquiry Pt receiving controlled substance: No Emile was queried for this patient: No Vital Signs: 04/03/24 17:05 Temperature 97.7 F Temperature Source Oral Pulse Rate [Left Brachial] 73 Respiratory Rate 20 Blood Pressure [Left Arm] 123/72 Blood Pressure Mean [Left Arm] 89 Blood Pressure Source [Left Arm] Automatic Cuff Blood Pressure Position [Left Arm] Sitting 02 Sat by Pulse Oximetry 97 Oxygen Delivery Method Room Air Orders (Tests/Meds): ORDERS Category Date Time Status XR ribs LT min 3V w CXR1V Stat Exams 04/03/24 17:13 Ordered Radiology Data #1: Image(s): Chest (with left ribs) Image Reviewed: Yes I have reviewed radiologist's interpretation FINDINGS: Lungs: Unremarkable. No consolidation. Pleural spaces: Unremarkable. No pleural effusion. No pneumothorax. Heart/Mediastinum: Unremarkable. No cardiomegaly. Bones/joints: Unremarkable. No acute fracture identified. IMPRESSION: No acute findings.
[2024-04-03] MEDS: METHYLPREDNISOLONE SOD SUCC 125MG VIAL 125 MG IM (18:08)
[2024-04-03 18:22] VITALS: BP 123/72; PULSE 73; RESP 20; TEMP 36.5; O2SAT 97
== END 2024-04-03 18:25 | disposition home or self-care (01) ==
PROVIDERS: Emergency Provider Nurse Practitioner
DX: R07.81 Pleurodynia (principal); R06.02 Shortness of breath
CPT/HCPCS: 71101; 96372; 99212; 99214; G0463; J2919

== ENCOUNTER 2024-07-31 18:00 | Emergency (ER) | payer BC, OTHER, SELFPAY ==
[2024-07-31 18:10] VITALS: BP 132/83; PULSE 82; RESP 18; TEMP 36.7; O2SAT 98; BMI 25.1
[2024-07-31] MEDS: TET/DIPHTH/PERT-ADULT 0.5ML SYRINGE 0.5 ML IM (18:50)
[2024-07-31 18:57] VITALS: BP 132/83; PULSE 82; RESP 18; TEMP 36.7; O2SAT 98
--- NOTE | 2024-07-31 19:02 | ED_ITS ---
Discharge Plan Disposition Patient Disposition: Home, Self-Care Condition: Good Prescriptions Prescriptions: New cephalexin 500 mg capsule 500 mg PO QID 7 Days Qty: 28 0RF Referrals Follow up/Referrals: Fernando Ballesteros DO [Staff Physician] - See instructions Provider,Referral, [Primary Care Provider] - See instructions Activity Restrictions/Add. Instructions Additional Instructions/Restrictions: Keep the wound clean and dry. Keep a dressing on it if you are going to be getting it dirty. Watch the wound for signs of infection, such as redness, swelling, drainage, fever. etc. Take tylenol or ibuprofen for pain. Follow up with your regular doctor. Wear the aluminum finger splint for the next 2 to 3 days to allow the wound time to start healing. Return in 7 to 10 days to have the sutures removed. GO TO THE ER FOR ANY WORSENING SYMPTOMS OR CONCERNS. Clinical Impressions Clinical Impression: Laceration, Laceration of left ring finger, Need for Tdap vaccination Instructions Patient Instructions: DI for Laceration Repair -- Finger, Tetanus, Diphtheria, and Pertussis Vaccine, Cephalexin Print Language Print Language: Surinamese Discharge ED Provider: Michael Mack [facility] [place] General Stated complaint: AO01/25 finger lac Mode of Arrival: Ambulatory Source of Information: Patient Limitations: No Limitations Time Seen by Provider: 07/31/24 19:02 Description of Symptoms (Recalled from Triage Doc. by RN): PATIENT C/O LACERATION TO LEFT RING FINGER AFTER CUTTING IT WITH AN AX TODAY APPROX 1 HOUR [employer] HEENT Symptoms (Recalled from RN notes): No Resp Symptoms (Recalled from RN notes): No Skin Symptoms (Recalled from RN notes): Yes MS Symptoms (Recalled from RN notes): No Functional Status (Recalled from RN notes): WNL History of Present Illness Provider Complaint: He accidentally hit his left ring finger on a sharp axe that was laying on the ground when he was trying to break up some fire wood. He has a laceration on the on the dorsal surface of that finger, slightly to the medial aspect of the center of the finger. His tdap immunization will be in 2 weeks. Related Data Previous Rx's ?Medication ?Instructions ?Recorded cephalexin 500 mg capsule 500 mg PO QID 7 days #28 caps 07/31/24 Allergies Allergy/AdvReac Type Severity Reaction Status Date / Time No Known Allergies Allergy Verified 02/28/21 14:11 Worker's Comp Is this a Worker's Comp case?: No [facility] Disclaimer: The information contained in this section may have been updated after the patient was seen, as this information can be updated by other users. Medical History (Updated 07/31/24 @ 19:46 by Michael Mack APRN) No significant past medical history Social History Smoking Status: Never smoker second hand exposure: No alcohol intake: current alcohol intake frequency: holidays/special occasions only substance use type: denies use current occupational status: employed Travel in the last 8 weeks: None household members: spouse housing: house current occupation: [employer] caffeine: Yes Have you lived/traveled outside [place] in past 30 days?: No Contact w/someone who lives/traveled outside [place] past 30 days?: No Exposure to someone with infectious disease in past 14 days?: No Do you have a fever (greater than 100.4 F or 38 C)?: No Have you tested positive for COVID-19: No Exposed to someone with COVID-19 in past 14 days?: No Do you have a sore throat?: No Do you have a cough?: No Do you have any weakness?: No Do you have any diarrhea?: No Are you experiencing any unusual bleeding?: No Do you have any muscle aches/pain?: No Do you have any abdominal pain?: No Are you experiencing loss of taste or smell?: No ROS Obtained: Yes All systems reviewed & no additional complaints except as documented Constitutional Constitutional: Denies chills and Denies fever(s) Eyes Eyes: Denies eye discharge ENT Ears, Nose, Mouth, and Throat: Denies dizziness, Denies otalgia and Denies sore throat Cardiovascular Cardiovascular: Denies chest pain Respiratory Respiratory: Denies shortness of breath, Denies chest congestion, Denies cough, Denies stridor and Denies wheezing Gastrointestinal Gastrointestingal: Denies nausea or vomiting Musculoskeletal Musculoskeletal: Reports system reviewed and no additional complaints, except as documented, Denies arthralgias and Denies numbness Integumentary/Breasts Skin/Breast: Reports as per HPI and Reports wounds Neurologic Neurologic: Denies dizziness, Denies numbness, Denies paresthesias and Denies radicular pain Allergic/Immunologic Allergic/Immunologic: Denies wheezing Physical Exam General General appearance: alert and in no apparent distress Head Head exam: atraumatic, normocephalic and normal inspection Eye Eye exam: Present normal appearance, PERRL and EOMI ENT ENT exam: Present normal exam, normal oropharynx, mucous membranes moist, TM's normal bilaterally and normal external ear exam Neck Neck exam: Present normal inspection, full ROM and trachea midline; Absent meningismus or lymphadenopathy Chest Chest inspection: Present normal inspection and symmetric chest wall rise; Absent tenderness Respiratory Respiratory exam: Present normal lung sounds bilaterally; Absent respiratory distress Cardiovascular Cardiovascular exam: Present regular rate and normal rhythm; Absent JVD Abdominal Exam Abdominal exam: Present soft and normal bowel sounds; Absent distention, tenderness or guarding Extremities Exam Extremities exam: Present normal capillary refill; Absent calf tenderness Expanded Upper Extremity Exam Left: Hand L/R back image: 2 1. laceration Neuromotor exam: Normal wrist extension, thumb opposition, thumb IP flexion, thumb adduction and fingers 2-5 abduction Neurosensory exam: Normal radial nerve, ulnar nerve and median nerve Vascular exam: Normal capillary refill, radial pulse and ulnar pulse Back Exam Back exam: Present normal inspection; Absent tenderness Neurological Exam Neurological exam: Present alert and oriented X3 Psychiatric Psychiatric exam: Present normal affect and normal mood Skin Skin exam: Present other (there is a 2.5 cm linear laceration that goes along the length of his left ring finger. no deep tissue or tendon injury noted. he has good 2 point touch discrimination distal to the wound. no foreign body noted. ) Lymphatic Lymphatic Findings: no adenopathy Medical Decision Making Medical Records Medical records reviewed: No I reviewed the patient's medical records. Screening: Per USPSTF and CDC recommendations, given the prevalence of disease in our region, it is our hospital?s policy to screen for HIV and viral Hepatitis for all patients aged 18 and over and those with ongoing risk factors. Emile Inquiry Pt receiving controlled substance: No Vital Signs: 07/31/24 18:10 07/31/24 18:57 Temperature 98.1 F 98.1 F Temperature Source Oral Pulse Rate 82 Pulse Rate [Right Brachial] 82 Respiratory Rate 18 18 Blood Pressure 132/83 Blood Pressure [Right Arm] 132/83 Blood Pressure Mean [Right Arm] 99 Blood Pressure Source [Right Arm] Automatic Cuff Blood Pressure Position [Right Arm] Sitting 02 Sat by Pulse Oximetry 98 Oxygen Delivery Method Room Air Orders (Tests/Meds): ED MEDICATIONS Generic Name Dose Route Start Last Admin Trade Name Akiko PRN Reason Stop Dose Admin Tetanus/Reduced Diphtheria/Acell Pertussis 0.5 ml 07/31/24 18:28 07/31/24 18:50 Tet/Diphth/Pert-Adult 0.5ml Syringe IM 07/31/24 18:29 0.5 ml .ONCE ONE Administration Procedures Risk/Benefits of Procedure(s) Were Explained: Yes Laceration Laceration 1: Site: finger (ring finger) Side (If applicable): left Size (cm): 2.5 Description: linear Depth: simple, single layer Local Anesthetic: lidocaine 1% Amount of anesthesia used (mL): 1.5 Pre-repair: wound explored, irrigated extensively and deep structures intact Skin layer closed with: nylon Size (cm): 5-0 Number of sutures: 10 Technique: simple, interrupted (he tolerated this well, good closure was obtained, the edges were approximated well. )
== END 2024-07-31 19:11 | disposition home or self-care (01) ==
PROVIDERS: Emergency Provider Nurse Practitioner Family
DX: S61.215A Laceration without foreign body of left ring finger without damage to nail, initial encounter (principal); Z23 Encounter for immunization
CPT/HCPCS: 90471; 90715; 99213; G0381

== ENCOUNTER 2024-09-19 16:25 | Outpatient (CLI) | payer OTHER, SELFPAY ==
--- NOTE | 2024-09-19 16:33 | XR_ITS ---
PROCEDURE INFORMATION: Exam: XR Right Hip Exam date and time: 09/19/2024 4:24 PM Age: 49 years old Clinical indication: Hip pain; Right hip; Additional info: Pain in right hip TECHNIQUE: Imaging protocol: Radiologic exam of the right hip. Views: 2 or 3 views hip with pelvis when performed. COMPARISON: No relevant prior studies available. FINDINGS: Bones/joints: Slight over coverage of the right acetabular roof, as could be seen with pincer type femoroacetabular morphology. Mild osteoarthritis of the right hip joint. Normal anatomic alignment. The bone density is normal for this patient's age. No acutely displaced fractures. No joint dislocation. No aggressive osseous lesions. Soft tissues: No acute soft tissue findings. IMPRESSION: 1. No acute skeletal pathology. 2. Incidental findings as above.
== END 2024-09-19 23:59 | disposition home or self-care (01) ==
LOC: RAD 16:28
PROVIDERS: Visit Provider Nurse Practitioner
DX: M25.551 Pain in right hip (principal); M54.31 Sciatica, right side
CPT/HCPCS: 73502